=== PATIENT | female | born 1975 | race African-American/Black ===

== ENCOUNTER 2017-02-16 16:09 | Emergency (ER) | payer MEDICAID ==
--- NOTE | ~2017-02-16 | ER ---
PATIENT'S NAME: BUBBA [facility] AGE: 41 Y [address] ROOM: [place] [address] LOCATION: [facility] ADMIT DATE: 02/16/2017 ER/Outpatient Report DISCHARGE DATE: 02/16/2017 FAMILY PHYSICIAN: Aaliyah Garces MD ATTENDING PHYSICIAN: Meri Victoria Time of Arrival: 1609 hours. Time of Evaluation: 1609 hours. CHIEF COMPLAINT: Nausea and vomiting. HISTORY OF PRESENT ILLNESS: The patient arrived per [facility]. She reports at 1430 hours today, she ate a hamburger and then began feeling extremely nauseated after that. States that she tried resting, but the nausea got worse. She states she ended up having some epigastric pain as a result of the nausea. She did have some projectile vomiting of a creamy yellow colored fluid. States she felt fine this morning. Has not had fever or chills. Denies any change in urinary pattern or bowel pattern. Has not been short of breath. Had a normal bowel movement today. ALLERGIES: NO KNOWN ALLERGIES. CURRENT MEDICATIONS: No current medications. PAST MEDICAL HISTORY: Benign. PAST SURGERIES: Femur fracture. SOCIAL HISTORY: She denies use of tobacco, drugs, or alcohol. REVIEW OF SYSTEMS: All negative other than those mentioned in the HPI. PHYSICAL EXAMINATION: VITAL SIGNS: She weighed 66.9 kg, blood pressure is 170/84, pulse is 69, respirations 18, and temperature of 97.1. GENERAL: She is awake, alert, and oriented x4. SKIN: [place], warm, and dry. PATIENT'S NAME: BUBBA [facility] AGE: 41 Y [address] ROOM: [place] [address] LOCATION: [facility] ADMIT DATE: 02/16/2017 ER/Outpatient Report DISCHARGE DATE: 02/16/2017 FAMILY PHYSICIAN: Aaliyah Garces MD ATTENDING PHYSICIAN: Meri Victoria RESPIRATIONS: Even and nonlabored. Lung sounds are clear throughout. HEART: Regular rate and rhythm. ABDOMEN: Soft. Nondistended. Bowel sounds are present. EXTREMITIES: She moves all extremities strongly and equally. LABORATORY DATA: Lab work was drawn. CBC is within normal limits. Chem panel is within normal limits. Amylase is 113. Lipase is 139. Her CPK is 211. CK-MB is 1. Troponin is negative. She states with rest she is feeling better, however, she gets dizzy with movement of her head. We did start a saline lock and gave her a liter of fluids of normal saline at a wide open rate. She was given meclizine 25 mg p.o. On reexamination, pupils are equal and reactive to light. Extraocular movement is intact. Negative nystagmus. With rest, she was feeling better and ready to go home. IMPRESSION: Nausea and vomiting. PLAN: Home. Rest. Clear liquid diet. Follow up with her primary provider in 2 to 3 days as needed or may return to the ER. She verbalized understanding. She did have a friend here to drive her home. SARA MAURICIO APRN FOR [facility]/lily /[id number] d: 02/17/176 t: 02/23/17 1926, OUTPATIENT REPORT
[2017-02-16 16:30] LABS: BASOPHIL # 0.1 K/uL (0.0-0.2); BASOPHIL % 0.7 %; EOSINOPHIL # 0.3 K/uL (0.0-0.5); HEMATOCRIT 38.3 % (33.0-46.0); HEMOGLOBIN 12.1 g/dL (10.0-15.0); IMMATURE GRANULOCYTE % 0.1 %; LYMPHOCYTE # 2.7 K/uL (0.8-4.0); LYMPHOCYTE % 37.2 %; MCH 28.3 pg (27.0-34.0); MCHC 31.6 gm/dL (32.0-36.5); MCV 89.5 fl (83.0-98.0); MONOCYTE # 0.7 K/uL (0.0-1.0); MONOCYTE % 9.2 %; MPV 9.8 fl (9.4-12.4); NEUTROPHIL # (ANC) 3.6 K/uL (1.8-7.8); NEUTROPHIL % 48.8 %; NRBC % 0 /100WBC (0-0.00); PLATELET COUNT 301 K/uL (150-450); RBC 4.28 M/uL (3.50-5.50); RDW-CV 12.9 % (11.9-14.6); WBC 7.3 K/uL (4.0-11.0)
[2017-02-16 16:45] LABS: ALBUMIN 3.8 gm/dL (3.5-5.0); ALK PHOS 53 IU/L (33-138); ALT 24 IU/L (12-78); AST 18 IU/L (10-40); BLOOD UREA NITROGEN 14 mg/dL (6-24); CALCIUM 8.8 mg/dL (8.5-10.5); CHLORIDE 105 mMol/L (96-110); CO2 27 mMol/L (22-32); CREATININE 0.8 mg/dL (0.5-1.1); ESTIMATED GFR (MDRD EQUATION) > 60; SODIUM 141 mMol/L (135-145); TOTAL BILIRUBIN 0.3 mg/dL (0.0-1.5); TOTAL PROTEIN 7.9 g/dL (6.0-8.4)
[2017-02-16 16:48] LABS: CPK 211 IU/L (21-215)
== END 2017-02-16 18:19 | disposition disaster alternative care site (69) ==
LOC: GMED 16:09
PROVIDERS: Nurse Practitioner Family
DX: R11.2 Nausea with vomiting, unspecified (principal); Z98.890 Other specified postprocedural states
CPT/HCPCS: J7030

== ENCOUNTER → 2017-02-16 | Outpatient (CLI) | payer MEDICAID | END | disposition disaster alternative care site (69) | LOC: GAMB 15:51 | DX: R11.2 Nausea with vomiting, unspecified (principal); R42 Dizziness and giddiness; R11.12 Projectile vomiting | CPT/HCPCS: A0425; A0429 ==